=== PATIENT | male | born 1970 | race Caucasian/White ===

== ENCOUNTER 2018-07-20 19:35 | Inpatient (IN) | payer MEDICAID ==
[~2018-07-20] VITALS: Ht 182.9 cm; Wt 147.9 kg
[2018-07-20 19:40] VITALS: BP_SYST 166
[2018-07-20 20:34] LABS: BASOPHILS % (AUTO) 0.5 % (0.0-2.0); EOSINOPHILS # (AUTO) 0.1 K/uL (0.0-0.4); EOSINOPHILS % (AUTO) 2.4 % (0.0-4.0); HEMATOCRIT 43.4 % (36-54); HEMOGLOBIN 14.7 g/dL (14.0-18.0); LYMPHOCYTES # (AUTO) 1.5 K/uL (1.0-5.5); LYMPHOCYTES % (AUTO) 28.1 % (20.5-51.5); MEAN CORPUSCULAR HEMOGLOBIN 31 pg (27-31); MEAN CORPUSCULAR HGB CONC 34 % (32-36); MEAN CORPUSCULAR VOLUME 92 fL (79.0-98.0); MONOCYTES # (AUTO) 0.7 K/uL (0.0-1.0); MONOCYTES % (AUTO) 12.4 % (1.7-9.3); NEUTROPHILS # (AUTO) 3.2 K/uL (1.8-7.7); NEUTROPHILS % (AUTO) 56.6 % (40.0-70.0); PLATELET COUNT (AUTO) 144 K/uL (130-430); RED BLOOD CELL COUNT(AUTO) 4.74 MIL/uL (4.2-6.2); RED CELL DISTRIBUTION WIDTH 12.6 % (9.0-15.0); WHITE BLOOD COUNT (AUTO) 5.5 K/uL (4.8-10.8)
[2018-07-20 20:56] LABS: CALCIUM 9.3 mg/dL (8.4-11.0); CREATININE 1.23 mg/dL (0.55-1.30); POTASSIUM 4.7 mmol/L (3.5-5.1)
[2018-07-20] MEDS ORDERED: MORPHINE 4 MG/ML INJ. SYRINGE IVP ONE ×2 (21:00→22:45)
[2018-07-20] MEDS ORDERED: NS 500 ML IV ONE (21:00)
[2018-07-20] MEDS ORDERED: INSULIN REGULAR, HUMAN 10 UNITS/0.1 ML INJ IVP ONE (21:00)
[2018-07-20] MEDS ORDERED: ASPIRIN 325 MG TABLET (ECOTRIN) PO ONE (21:00)
[2018-07-20 21:01] LABS: ALBUMIN 3.3 g/dL (3.4-4.8); TOTAL BILIRUBIN 0.7 mg/dL (0.0-1.0)
[2018-07-20] MEDS ORDERED: NACL 0.9% 1,000 ML IV ONE (21:15)
[2018-07-20] MEDS ORDERED: ALBUTEROL SULFATE 0.083% 2.5 MG/3 ML VIAL.NEB INH ONE (21:30)
[2018-07-20] MEDS ORDERED: IOHEXOL 350 mgI/mL, 150 ML INFUS..BTL IV ONE (21:52)
[2018-07-20] MEDS ORDERED: PIPERACILLIN/TAZO 3.375 GM in NS 50 ML IV ONE (22:45)
[2018-07-20] MEDS ORDERED: VANCOMYCIN HCL 1,000 MG in NS 250 ML IV ONE (22:45)
[2018-07-20] MEDS ORDERED: VANCOMYCIN HCL 1000 MG/VIAL IV ONE (23:05)
[2018-07-20] MEDS ORDERED: PIPERACILLIN/TAZOBACTAM 3.375 GM/VIAL (ZOSYN) IV ONE (23:06)
[2018-07-20] MEDS ORDERED: ONDANSETRON HCL 4 MG/2 ML VIAL IVP PRN (23:15)
[2018-07-20 23:53] VITALS: BP_SYST 141
[2018-07-21] MEDS: INSULIN REGULAR, HUMAN 100 UNITS/ML, 10 ML VIAL (novoLIN R) SUBCUT PRN ×4 (06:11→22:05)
[2018-07-21 08:10] VITALS: BP_SYST 147
[2018-07-21] MEDS ORDERED: HYDROcodone/ACETAMIN 5-325 MG TAB (NORCO/ VICODIN) PO PRN (10:00)
[2018-07-21] MEDS ORDERED: FUROSEMIDE 40 MG TABLET PO ONE (10:15)
[2018-07-21] MEDS ORDERED: ATORVASTATIN 20 MG TABLET PO ONE (10:15)
[2018-07-21] MEDS ORDERED: CARVEDILOL 12.5 MG TABLET (COREG) PO ONE (10:15)
[2018-07-21] MEDS ORDERED: LISINOPRIL 20 MG TABLET PO ONE (10:15)
[2018-07-21 12:00] VITALS: BP_SYST 143
[2018-07-21 13:16] LABS: BARBITURATE, URINE NEGATIVE (NEG <=200); BENZODIAZEPINE, URINE NEGATIVE (NEG <=150); CANNABINOID, URINE NEGATIVE (NEG <=50); COCAINE, URINE NEGATIVE (NEG <=150); METHAMPHETAMINES SCREEN,URINE POSITIVE (NEG <=500); OPIATE, URINE POSITIVE (NEG <=100); PHENCYCLIDINE SCREEN,URINE NEGATIVE (NEG <=25); UR TRICYCLIC ANTIDEPRESSANTS NEGATIVE (NEG <=300); URINE AMPHETAMINE POSITIVE (NEG <=500); URINE METHADONE NEGATIVE (NEG <=200); URINE OXYCODONE SCREEN NEGATIVE (NEG <=100); URINE PROPOXYPHENE SCREEN NEGATIVE (NEG <=300)
[2018-07-21 15:01] VITALS: BP_SYST 96
[2018-07-21] MEDS: RIVAROXABAN 20 MG TABLET PO SCH (17:05)
[2018-07-21] MEDS: MORPHINE 2 MG/ML INJ. SYRINGE IVP PRN (19:07)
[2018-07-21 19:10] VITALS: BP_SYST 108
[2018-07-21 20:00] VITALS: BP_SYST 110
[2018-07-21] MEDS: CARVEDILOL 12.5 MG TABLET (COREG) PO SCH (20:50)
[2018-07-21] MEDS: FUROSEMIDE 40 MG TABLET PO SCH (20:50)
[2018-07-22 00:59] VITALS: BP_SYST 103
[2018-07-22] MEDS: INSULIN REGULAR, HUMAN 100 UNITS/ML, 10 ML VIAL (novoLIN R) SUBCUT PRN ×4 (06:30→20:14)
[2018-07-22 07:08] LABS: ALBUMIN 2.8 g/dL (3.4-4.8); CALCIUM 8.2 mg/dL (8.4-11.0); CREATININE 0.94 mg/dL (0.55-1.30); POTASSIUM 3.9 mmol/L (3.5-5.1); THYROID STIMULATING HORMONE 1.35 uIu/mL (0.34-4.82); TOTAL BILIRUBIN 0.7 mg/dL (0.0-1.0)
[2018-07-22 07:19] LABS: BASOPHILS % (AUTO) 0.7 % (0.0-2.0); EOSINOPHILS # (AUTO) 0.2 K/uL (0.0-0.4); HEMATOCRIT 39.1 % (36-54); HEMOGLOBIN 13.3 g/dL (14.0-18.0); LYMPHOCYTES # (AUTO) 1.7 K/uL (1.0-5.5); LYMPHOCYTES % (AUTO) 29.5 % (20.5-51.5); MEAN CORPUSCULAR HEMOGLOBIN 31 pg (27-31); MEAN CORPUSCULAR HGB CONC 34 % (32-36); MEAN CORPUSCULAR VOLUME 91 fL (79.0-98.0); MONOCYTES # (AUTO) 0.8 K/uL (0.0-1.0); MONOCYTES % (AUTO) 13.4 % (1.7-9.3); NEUTROPHILS % (AUTO) 52.4 % (40.0-70.0); PLATELET COUNT (AUTO) 122 K/uL (130-430); RED BLOOD CELL COUNT(AUTO) 4.29 MIL/uL (4.2-6.2); RED CELL DISTRIBUTION WIDTH 12.5 % (9.0-15.0); WHITE BLOOD COUNT (AUTO) 5.7 K/uL (4.8-10.8)
[2018-07-22 08:00] VITALS: BP_SYST 115
[2018-07-22] MEDS: ATORVASTATIN 20 MG TABLET PO SCH (09:19)
[2018-07-22] MEDS: FUROSEMIDE 40 MG TABLET PO SCH ×2 (09:20→20:11)
[2018-07-22] MEDS: ASPIRIN 81 MG TAB.CHEW PO SCH (09:20)
[2018-07-22] MEDS: CARVEDILOL 12.5 MG TABLET (COREG) PO SCH ×2 (09:21→21:49)
[2018-07-22] MEDS: LISINOPRIL 20 MG TABLET PO SCH (09:21)
[2018-07-22 12:00] VITALS: BP_SYST 117
[2018-07-22 16:55] VITALS: BP_SYST 106
[2018-07-22] MEDS: RIVAROXABAN 20 MG TABLET PO SCH (17:34)
[2018-07-22] MEDS: MORPHINE 2 MG/ML INJ. SYRINGE IVP PRN ×2 (19:46→23:38)
[2018-07-22 20:00] VITALS: BP_SYST 103
[2018-07-23] VITALS: BP_SYST 120
[2018-07-23] MEDS: MORPHINE 2 MG/ML INJ. SYRINGE IVP PRN ×2 (05:47→09:56)
[2018-07-23] MEDS: INSULIN REGULAR, HUMAN 100 UNITS/ML, 10 ML VIAL (novoLIN R) SUBCUT PRN ×2 (06:18→11:30)
[2018-07-23 08:02] VITALS: BP_SYST 129
[2018-07-23] MEDS: FUROSEMIDE 40 MG TABLET PO SCH (08:53)
[2018-07-23] MEDS: ASPIRIN 81 MG TAB.CHEW PO SCH (08:53)
[2018-07-23] MEDS: CARVEDILOL 12.5 MG TABLET (COREG) PO SCH (08:53)
[2018-07-23] MEDS: ATORVASTATIN 20 MG TABLET PO SCH (08:54)
[2018-07-23] MEDS: LISINOPRIL 20 MG TABLET PO SCH (08:54)
[2018-07-23 10:24] VITALS: BP_SYST 129
[2018-07-23 13:03] VITALS: BP_SYST 103
== END 2018-07-23 13:15 | disposition home or self-care (01) | DRG 194 ==
LOC: SED 19:35 → STU 23:11
PROVIDERS: ADMIT Internal Medicine Hospice and Palliative Medicine; ATTEND Internal Medicine Hospice and Palliative Medicine
DX: I11.0 Hypertensive heart disease with heart failure (principal); E11.622 Type 2 diabetes mellitus with other skin ulcer; E11.65 Type 2 diabetes mellitus with hyperglycemia; L03.115 Cellulitis of right lower limb; E66.01 Morbid (severe) obesity due to excess calories; I42.0 Dilated cardiomyopathy; I50.21 Acute systolic (congestive) heart failure; L97.919 Non-pressure chronic ulcer of unspecified part of right lower leg with unspecified severity; F10.10 Alcohol abuse, uncomplicated; F15.10 Other stimulant abuse, uncomplicated; F17.200 Nicotine dependence, unspecified, uncomplicated; I42.7 Cardiomyopathy due to drug and external agent; T43.625A Adverse effect of amphetamines, initial encounter; I83.009 Varicose veins of unspecified lower extremity with ulcer of unspecified site; I25.10 Atherosclerotic heart disease of native coronary artery without angina pectoris; Z66 Do not resuscitate; L03.116 Cellulitis of left lower limb; Y90.9 Presence of alcohol in blood, level not specified; Z95.810 Presence of automatic (implantable) cardiac defibrillator; Z91.14 Patient's other noncompliance with medication regimen; Z79.899 Other long term (current) drug therapy; Y92.89 Other specified places as the place of occurrence of the external cause; Z86.73 Personal history of transient ischemic attack (TIA), and cerebral infarction without residual deficits; Z79.4 Long term (current) use of insulin; Z86.711 Personal history of pulmonary embolism; Z68.41 Body mass index [BMI] 40.0-44.9, adult; Z86.718 Personal history of other venous thrombosis and embolism; Z71.51 Drug abuse counseling and surveillance of drug abuser
CPT/HCPCS: 36415; 71045; 71275; 80053; 80061; 80307; 82962; 83036; 83605; 83880; 84443-TC; 84484; 85025; 85379; 87040-TC; 93005; 93306; 94640; 96361; 96365; 96375; 96376; 99285; J1815; J2270; J2543; J3370; J7030; J7040; J7613; Q9967

== ENCOUNTER 2022-01-05 03:20 | Inpatient (IN) | payer MEDICAID ==
[~2022-01-05] VITALS: Ht 182.9 cm; Wt 127.0 kg
[2022-01-05 03:30] VITALS: BP_SYST 136
--- NOTE | 2022-01-05 03:35 | NUR ---
Placed in room 4 . Placed on teletypesetter monitor, blood pressure machine and pulse oximeter. To gown for exam. Side rails up. Report given to MARLINE JEFFERSON.
--- NOTE | 2022-01-05 03:45 | NUR ---
Note undone in EDM - 01/05/22 at 0419 by SDEDPR # 20 gauge angiocath placed to right ac. Use of asceptic technique. Opsite placed over site. Blood return noted. Blood for lab drawn from site. Flushed with 10 cc of normal saline. No evidence of infiltration noted. Patient tolerated well.
--- NOTE | 2022-01-05 03:45 | NUR ---
ER at bedside examining patient.
[2022-01-05] MEDS ORDERED: ASPIRIN 81 MG TAB.CHEW PO ONE ×2 (04:00→09:15)
--- NOTE | 2022-01-05 04:15 | NUR ---
ER at bedside examining patient.
--- NOTE | 2022-01-05 04:18 | NUR ---
# 20 gauge angiocath placed to Right AC. Use of asceptic technique. Opsite placed over site. Blood return noted. Blood for lab drawn from site. Flushed with 10 cc of normal saline. No evidence of infiltration noted. Patient tolerated well.
[2022-01-05 04:58] LABS: BASOPHILS # (AUTO) 0.1 K/uL (0.0-0.2); BASOPHILS % (AUTO) 0.8 % (0.0-2.0); EOSINOPHILS # (AUTO) 0.2 K/uL (0.0-0.4); EOSINOPHILS % (AUTO) 2.9 % (0.0-4.0); HEMATOCRIT 37.4 % (36-54); LYMPHOCYTES # (AUTO) 1.3 K/uL (1.0-5.5); LYMPHOCYTES % (AUTO) 19.6 % (20.5-51.5); MEAN CORPUSCULAR HEMOGLOBIN 26 pg (27-31); MEAN CORPUSCULAR HGB CONC 32 % (32-36); MEAN CORPUSCULAR VOLUME 82 fL (79.0-98.0); MONOCYTES # (AUTO) 0.8 K/uL (0.0-1.0); MONOCYTES % (AUTO) 11.9 % (1.7-9.3); NEUTROPHILS # (AUTO) 4.3 K/uL (1.8-7.7); NEUTROPHILS % (AUTO) 64.8 % (40.0-70.0); PLATELET COUNT (AUTO) 168 K/uL (130-430); RED BLOOD CELL COUNT(AUTO) 4.56 MIL/uL (4.2-6.2); RED CELL DISTRIBUTION WIDTH 17.2 % (9.0-15.0); WHITE BLOOD COUNT (AUTO) 6.6 K/uL (4.8-10.8)
[2022-01-05 05:08] LABS: CALCIUM 8.2 mg/dL (8.4-11.0); CREATININE 0.99 mg/dL (0.55-1.30)
--- NOTE | 2022-01-05 05:14 | NUR ---
Patient is admitted to the ER via ambulance. chief complaint is chest pain and leg pain. He is describing the pain as a "squishing of the heart". Patient has normal heart sounds and peripheral pulses are palpable. Patient has bilateral swelling and edema on both legs. Patient's legs are discolored and painful to walk on.
[2022-01-05 05:19] LABS: ALBUMIN 3.6 g/dL (3.4-4.8); PHOSPHORUS 3.7 mg/dL (2.7-4.5); TOTAL BILIRUBIN 0.7 mg/dL (0.0-1.0)
[2022-01-05] MEDS ORDERED: FUROSEMIDE 100 MG/10 ML VIAL IVP ONE (05:45)
--- NOTE | 2022-01-05 06:03 | NUR ---
Pt cannot remember his home medication.
--- NOTE | 2022-01-05 06:03 | NUR ---
Urine sent to the lab for UDS.
[2022-01-05] MEDS ORDERED: ONDANSETRON HCL 4 MG/2 ML VIAL IVP PRN (06:30)
[2022-01-05 07:06] LABS: BARBITURATE, URINE NEGATIVE (NEG <=200); BENZODIAZEPINE, URINE NEGATIVE (NEG <=150); CANNABINOID, URINE NEGATIVE (NEG <=50); COCAINE, URINE NEGATIVE (NEG <=150); METHAMPHETAMINES SCREEN,URINE NEGATIVE (NEG <=500); OPIATE, URINE NEGATIVE (NEG <=100); PHENCYCLIDINE SCREEN,URINE NEGATIVE (NEG <=25); UR TRICYCLIC ANTIDEPRESSANTS NEGATIVE (NEG <=300); URINE AMPHETAMINE NEGATIVE (NEG <=500); URINE METHADONE NEGATIVE (NEG <=200); URINE OXYCODONE SCREEN NEGATIVE (NEG <=100); URINE PROPOXYPHENE SCREEN NEGATIVE (NEG <=300)
--- NOTE | 2022-01-05 08:00 | NUR ---
Pt is in bed at lowest position. VSS. pt states he had chest pain when he first came and currently his chest pain he states it has improved from /10 to 5/10. Bilateral leg swelling noted. No sob and no n/v. Skin is intact. A&Ox4.
--- NOTE | 2022-01-05 08:58 | NUR ---
CONSULTATION PAGED/CALLED Reason for Consultation: [] chest pain Person Who was Notified: [] US DR DAVID PATEL ON EAST SIDE Consulting Physician: [] DR HERNANDEZ Hand Hide Stretcher Specialty: [] CARDIO Ordering Physician: [] DR LAWLER/PRESTON
[2022-01-05] MEDS ORDERED: D5W 1,000 ML IV PRN (09:00)
[2022-01-05] MEDS ORDERED: DEXTROSE 50% JECT 50 ML DISP.SYRIN IVP PRN (09:00)
[2022-01-05] MEDS ORDERED: GLUCOSE (DEXTROSE) ORAL GEL -Adults PO PRN (09:00)
--- NOTE | 2022-01-05 09:04 | NUR ---
Patient will be admitted to care of Michael JEFFERSON. Admitted to Tele unit. Will go to room 102A. Belongings list completed. Complete and up to date summary report printed. SBAR report to be given at bedside with opportunity for questions.
[2022-01-05] MEDS ORDERED: LISINOPRIL 10 MG TABLET (PRINIVIL) PO ONE (09:15)
[2022-01-05] MEDS ORDERED: ATORVASTATIN 20 MG TABLET PO ONE (09:15)
[2022-01-05 09:24] VITALS: BP_SYST 130
[2022-01-05] MEDS: INSULIN LISPRO SLIDING SCALE 100 UNITS/ML VIAL (humaLOG) SUBCUT PRN ×2 (12:41→17:56)
[2022-01-05] MEDS ORDERED: AMIO200T61 PO (12:48)
[2022-01-05] MEDS ORDERED: LIP40 PO (12:49)
[2022-01-05] MEDS ORDERED: IPRA4AER INH (12:50)
[2022-01-05] MEDS ORDERED: LEVE1000 PO (12:51)
[2022-01-05] MEDS ORDERED: METF-379 PO (12:52)
[2022-01-05] MEDS ORDERED: RIVA20TA PO (12:53)
[2022-01-05] MEDS ORDERED: METO25TA3 PO (12:53)
[2022-01-05] MEDS ORDERED: SPIR25TA PO (12:54)
[2022-01-05] MEDS ORDERED: SPIRIVA INH (12:55)
[2022-01-05] MEDS ORDERED: VALS80TA2 PO (12:59)
[2022-01-05] MEDS ORDERED: levETIRAcetam 500 MG TABLET PO ONE (13:15)
[2022-01-05 13:28] VITALS: BP_SYST 130
[2022-01-05] MEDS: IPRATROPIUM/ALBUTEROL SULFATE 3 ML AMPUL.NEB (DUONEB) INH SCH ×3 (14:13→23:00)
--- NOTE | 2022-01-05 16:40 | NUR ---
0915: PATIENT ADMITTED THRU ER. AWAKE, ALERT, ORIENTED X 4 TO NAME, PERSON, PLACE, AND TIME. RESPIRATION EVEN AND UNLABORED NO S/S OF ANY ACUTE DISTRESS NOTED. ABLE TO VERBALIZE NEEDS NO C/O ANY PAIN OR DISCOMFORT NOTED. ABDOMEN SOFT AND NON-DISTENDED, POSITIVE BOWEL SOUND X 4 NO N/V OR DIARRHEA NOTED. SKIN WARM AND DRY INTACT, BILATERAL LOWER EXTREMITIES DISCOLORATION AND 3+ EDEMA WITH PALPABLE PULSES BILATERALLY WILL CONTINUE TO MONITOR PATIENT.
--- NOTE | 2022-01-05 18:42 | NUR ---
Paged Dr. Bustamante s/w Ariela
[2022-01-05] MEDS ORDERED: NALOXONE HCL 0.4 MG/ML AMP (NARCAN) IVP PRN (18:45)
[2022-01-05] MEDS ORDERED: MORPHINE 2 MG/ML INJ. SYRINGE ONE (18:51)
--- NOTE | 2022-01-05 19:00 | NUR ---
1730: PATIENT DID C/O CHEST PAIN 7/10, EKG REPEATED PER PROTOCOL AND DR. HERNANDEZ WAS NOTIFIED, NO NEEDS FOR TROPONIN LEVEL TONIGHT TO BE DONE IN AM. 1900: NEW ORDER FOR PRN CHEST PAIN, MORPHINE 2 MG IV PUSH PRN FOR CHEST PAIN EFFECTIVE. PATIENT PAIN LEVEL NOW IS 2/10. WILL ENDORSED PATIENT TO PM SHIFT NURSE
[2022-01-05 20:00] VITALS: BP_SYST 108
[2022-01-05] MEDS ORDERED: LOSARTAN POTASSIUM 50 MG TABLET (COZAAR) PO SCH (21:00)
[2022-01-05] MEDS ORDERED: CARVEDILOL 3.125 MG TABLET (COREG) PO SCH (21:00)
[2022-01-05] MEDS ORDERED: VALSARTAN 80 MG TABLET (DIOVAN) PO SCH (21:00)
[2022-01-05] MEDS: SPIRONOLACTONE 25 MG TABLET (ALDACTONE) PO SCH (21:54)
[2022-01-05] MEDS: FUROSEMIDE 40 MG/4 ML VIAL IVP SCH (21:54)
[2022-01-05] MEDS: AMIODARONE HCL 200 MG TABLET PO SCH (21:54)
[2022-01-05] MEDS: RIVAROXABAN 10 MG TABLET PO SCH (21:55)
[2022-01-05] MEDS: levETIRAcetam 500 MG TABLET PO SCH (21:55)
[2022-01-05] MEDS: CARVEDILOL 3.125 MG TABLET (COREG) PO SCH (21:55)
[2022-01-05] MEDS: INSULIN GLARGINE 100 UNITS/ML 10 ML VIAL SUBCUT SCH (21:56)
[2022-01-06] VITALS: BP_SYST 106
[2022-01-06] MEDS: IPRATROPIUM/ALBUTEROL SULFATE 3 ML AMPUL.NEB (DUONEB) INH SCH ×5 (03:00→23:25)
[2022-01-06 04:00] VITALS: BP_SYST 110
[2022-01-06 07:53] LABS: INR 1.5 (0.80-1.20); PROTHROMBIN TIME 15.3 SECS (9.5-12.5)
--- NOTE | 2022-01-06 08:00 | NUR ---
AWAKE, ALERT, ORIENTED X 4 TO NAME, PERSON, PLACE, AND TIME. RESPIRATION EVEN AND UNLABORED NO S/S OF ANY ACUTE DISTRESS NOTED. ABLE TO VERBALIZE NEEDS NO C/O ANY PAIN OR DISCOMFORT @ THIS TIME. ABDOMEN SOFT AND NON-DISTENDED, POSITIVE BOWEL SOUND X 4 NO N/V OR DIARRHEA NOTED. SKIN WARM AND DRY, LOWER EXTREMITIES EDEMA WITH DISCOLORATION, PALPABLE PULSES. WILL CONTINUE TO MONITOR PATIENT
[2022-01-06 08:03] LABS: ALBUMIN 3.2 g/dL (3.4-4.8); CALCIUM 7.6 mg/dL (8.4-11.0); CREATININE 0.99 mg/dL (0.55-1.30); THYROID STIMULATING HORMONE 4.72 uIu/mL (0.36-3.74)
[2022-01-06] MEDS: FOLIC ACID 1 MG TABLET PO SCH (08:23)
[2022-01-06] MEDS: THIAMINE HCL 100 MG TABLET PO SCH (08:23)
[2022-01-06] MEDS: levETIRAcetam 500 MG TABLET PO SCH ×2 (08:23→20:56)
[2022-01-06] MEDS: ASPIRIN 81 MG TAB.CHEW PO SCH (08:23)
[2022-01-06] MEDS: ATORVASTATIN 20 MG TABLET PO SCH (08:24)
[2022-01-06] MEDS: AMIODARONE HCL 200 MG TABLET PO SCH ×2 (08:25→20:56)
--- NOTE | 2022-01-06 08:45 | NUR ---
BP 107/63, HR 80, NO C/O ANY LIGHTHEADEDNESS OR DIZZINESS NOTED. ALL DIURETIC AND B/P HELD, WILL CONTINUE TO MONITOR VS.
[2022-01-06] MEDS: CARVEDILOL 3.125 MG TABLET (COREG) PO SCH ×2 (09:00→20:56)
[2022-01-06] MEDS: FUROSEMIDE 40 MG/4 ML VIAL IVP SCH ×2 (09:00→20:55)
[2022-01-06] MEDS ORDERED: TIOTROPIUM BROMIDE 18 mcg/INHALATION (CAPSULE) INH SCH (09:00)
[2022-01-06] MEDS ORDERED: LISINOPRIL 10 MG TABLET (PRINIVIL) PO SCH (09:00)
[2022-01-06] MEDS ORDERED: ATORVASTATIN 20 MG TABLET PO SCH (09:00)
[2022-01-06] MEDS: SPIRONOLACTONE 25 MG TABLET (ALDACTONE) PO SCH ×2 (09:00→20:56)
[2022-01-06 09:37] LABS: BASOPHILS % (AUTO) 0.5 % (0.0-2.0); EOSINOPHILS # (AUTO) 0.1 K/uL (0.0-0.4); EOSINOPHILS % (AUTO) 1.7 % (0.0-4.0); HEMATOCRIT 36.4 % (36-54); HEMOGLOBIN 11.4 g/dL (14.0-18.0); LYMPHOCYTES # (AUTO) 1.5 K/uL (1.0-5.5); LYMPHOCYTES % (AUTO) 20.4 % (20.5-51.5); MEAN CORPUSCULAR HEMOGLOBIN 26 pg (27-31); MEAN CORPUSCULAR HGB CONC 31 % (32-36); MEAN CORPUSCULAR VOLUME 82 fL (79.0-98.0); NEUTROPHILS # (AUTO) 4.9 K/uL (1.8-7.7); NEUTROPHILS % (AUTO) 64.4 % (40.0-70.0); PLATELET COUNT (AUTO) 170 K/uL (130-430); RED BLOOD CELL COUNT(AUTO) 4.45 MIL/uL (4.2-6.2); RED CELL DISTRIBUTION WIDTH 17.6 % (9.0-15.0); WHITE BLOOD COUNT (AUTO) 7.6 K/uL (4.8-10.8)
[2022-01-06 11:26] VITALS: BP_SYST 109
[2022-01-06] MEDS: INSULIN LISPRO SLIDING SCALE 100 UNITS/ML VIAL (humaLOG) SUBCUT PRN ×2 (12:28→17:10)
[2022-01-06 15:44] VITALS: BP_SYST 116
--- NOTE | 2022-01-06 18:45 | NUR ---
VS MORE STABLE, AFEBRILE, NO C/O ANY PAIN OR DISCOMFORT NOTED. TOLERATED PO WELL WITH GOOD APPETITE, NO SHORTNESS OF BREATH NOTED. WILL ENDORSE PATIENT TO PM SHIFT NURSE.
[2022-01-06 20:00] VITALS: BP_SYST 105
[2022-01-06] MEDS: RIVAROXABAN 10 MG TABLET PO SCH (20:57)
[2022-01-06] MEDS: INSULIN GLARGINE 100 UNITS/ML 10 ML VIAL SUBCUT SCH (21:03)
[2022-01-07] VITALS: BP_SYST 102
[2022-01-07] MEDS: MORPHINE 2 MG/ML INJ. SYRINGE IVP PRN ×2 (00:08→08:31)
[2022-01-07] MEDS: IPRATROPIUM/ALBUTEROL SULFATE 3 ML AMPUL.NEB (DUONEB) INH SCH ×3 (03:00→11:22)
[2022-01-07 04:00] VITALS: BP_SYST 105
[2022-01-07 06:51] LABS: BASOPHILS % (AUTO) 0.6 % (0.0-2.0); EOSINOPHILS # (AUTO) 0.2 K/uL (0.0-0.4); EOSINOPHILS % (AUTO) 1.8 % (0.0-4.0); HEMATOCRIT 37.7 % (36-54); HEMOGLOBIN 11.9 g/dL (14.0-18.0); LYMPHOCYTES # (AUTO) 1.5 K/uL (1.0-5.5); LYMPHOCYTES % (AUTO) 18.1 % (20.5-51.5); MEAN CORPUSCULAR HEMOGLOBIN 26 pg (27-31); MEAN CORPUSCULAR HGB CONC 32 % (32-36); MEAN CORPUSCULAR VOLUME 82 fL (79.0-98.0); MONOCYTES # (AUTO) 0.9 K/uL (0.0-1.0); MONOCYTES % (AUTO) 10.9 % (1.7-9.3); NEUTROPHILS # (AUTO) 5.9 K/uL (1.8-7.7); NEUTROPHILS % (AUTO) 68.6 % (40.0-70.0); PLATELET COUNT (AUTO) 179 K/uL (130-430); RED BLOOD CELL COUNT(AUTO) 4.63 MIL/uL (4.2-6.2); RED CELL DISTRIBUTION WIDTH 17.7 % (9.0-15.0); WHITE BLOOD COUNT (AUTO) 8.6 K/uL (4.8-10.8)
[2022-01-07 07:20] LABS: CALCIUM 8.1 mg/dL (8.4-11.0); CREATININE 1.04 mg/dL (0.55-1.30); PHOSPHORUS 4.3 mg/dL (2.7-4.5); POTASSIUM 4.1 mmol/L (3.5-5.1)
--- NOTE | 2022-01-07 07:30 | NUR ---
Initial Note Patient asleep in bed, wakes to verbal stimuli. Alert and oriented x 4. Reports 7/10 chest pain. RT at bedside to give breathing treatment. Patient is not using oxygen at this time; saturating 98% on room air. Bilateral lower extremities with deep red-purple discoloration and pitting edema. Pedal pulses weak. No fever present. Call light and urinal in reach and bed in lowest position. Encouraged to call.
[2022-01-07] MEDS ORDERED: AMIO200T66 PO (08:28)
[2022-01-07] MEDS: FUROSEMIDE 40 MG/4 ML VIAL IVP SCH (08:32)
[2022-01-07] MEDS: AMIODARONE HCL 200 MG TABLET PO SCH (08:34)
[2022-01-07] MEDS: ASPIRIN 81 MG TAB.CHEW PO SCH (08:34)
[2022-01-07] MEDS: SPIRONOLACTONE 25 MG TABLET (ALDACTONE) PO SCH (08:35)
[2022-01-07] MEDS: ATORVASTATIN 20 MG TABLET PO SCH (08:36)
[2022-01-07] MEDS: FOLIC ACID 1 MG TABLET PO SCH (08:36)
[2022-01-07] MEDS: THIAMINE HCL 100 MG TABLET PO SCH (08:36)
[2022-01-07] MEDS ORDERED: THIA100T70 PO (08:37)
[2022-01-07] MEDS ORDERED: LEVE1000 PO (08:37)
[2022-01-07] MEDS ORDERED: CARV6.2554 PO (08:37)
[2022-01-07] MEDS ORDERED: SPIR25TA PO (08:37)
[2022-01-07] MEDS ORDERED: FOLI-43 PO (08:37)
[2022-01-07] MEDS ORDERED: RIVA20TA PO (08:37)
[2022-01-07] MEDS ORDERED: FURO-149 PO (08:37)
[2022-01-07] MEDS ORDERED: ALBMDI INH (08:37)
[2022-01-07] MEDS ORDERED: ASPI-1393 PO (08:37)
[2022-01-07] MEDS ORDERED: LISI10TA29 PO (08:37)
[2022-01-07] MEDS ORDERED: POTA-178 PO (08:37)
[2022-01-07] MEDS ORDERED: LIP40 PO (08:37)
[2022-01-07] MEDS ORDERED: INSU100V9 SQ (08:37)
[2022-01-07] MEDS: CARVEDILOL 3.125 MG TABLET (COREG) PO SCH (08:38)
[2022-01-07] MEDS: levETIRAcetam 500 MG TABLET PO SCH (08:43)
[2022-01-07 08:52] VITALS: BP_SYST 129
[2022-01-07] MEDS: INSULIN LISPRO SLIDING SCALE 100 UNITS/ML VIAL (humaLOG) SUBCUT PRN (11:15)
[2022-01-07 11:46] VITALS: BP_SYST 103
--- NOTE | 2022-01-07 13:10 | NUR ---
D/C Patient Patient given medication reconciliation form and D/C instructions. Exit Care provided. Patient verbalized understanding. MD discussed with patient the results and treatment provided. Ambulatory with assist for discharge to home; patient's mom to further assist. Patient in stable condition, ID band removed. IV catheter removed, intact and dressing applied, no active bleeding. Rx sent to preferred pharmacy. Patient educated on pain management. All belongings sent with patient.
--- NOTE | 2022-01-07 15:14 | NUR ---
Legal Editor MAXWELL Lai responded to social work referral. Patient's mother Indira Chappell requested to discuss some concerns prior to entering patients room. Patient's mother expressed concern related to patient's care, noncompliance with followup care and medication. She shared they currently reside in [facility]. According to patient's mother, he has been in several hospitals to treat previous strokes, open-heart surgery, and was placed on a psych hold at [place] prior to his current hospitalization. In an effort to assess for needs, MAXWELL Lai guided Indira through the hospital locations to obtain the location of his primary residence and his support [place]. Indira shares he was staying with a friend in the area, whom she shared having paid $30 to take care of him. Indira express frustration and stress related to "not taking care of himself", and requested resources for "convalescent home" or "senior care". MAXWELL Lai met with patient at bedside and completed introductions. 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 He shared he would be going back to [place] and he would not be around persons who use. Patient shared he would complete his followup care in [place] as well. MAXWELL Lai offered patient Substance Abuse and Mental Health Resources but the patient declined the packets.
--- NOTE | 2022-01-07 15:29 | NUR ---
Hoister MAXWELL Lai received a call from LI Liu stating patient and his mother were requesting additional support. MAXWELL Lai met with patient and his mother Indira at bedside. Patient's mother was again asking for support with in-home or supportive care for her son. MAXWELL Lai provided patient and mother with several resources, but informed them the resources would not be available in [place]. Patient shared he may be able to reside in [place], [place] with 2 friends. MAXWELL Lai provided him resources for [facility] and encouraged him to followup with applications for General Relief, In Home Supportive Services, [employer], and contact his Disability [employer] to inquire inot the support they may be able provide. MAXWELL also encouraged him to locate a primary care doctor to establish regular care. MAXWELL Lai also encouraged patient's mother to utilize mental health resources as she has expressed feeling stressed, and began to cry when discussing her concerns related to her son's health.
== END 2022-01-07 13:10 | disposition home or self-care (01) | DRG 194 ==
LOC: SED 03:20 → STU 06:29
PROVIDERS: ADMIT Student in an Organized Health Care Education/Training Program; ATTEND Student in an Organized Health Care Education/Training Program
DX: I11.0 Hypertensive heart disease with heart failure (principal); I42.0 Dilated cardiomyopathy; E87.1 Hypo-osmolality and hyponatremia; E87.8 Other disorders of electrolyte and fluid balance, not elsewhere classified; E11.65 Type 2 diabetes mellitus with hyperglycemia; E66.01 Morbid (severe) obesity due to excess calories; D64.9 Anemia, unspecified; E78.5 Hyperlipidemia, unspecified; J44.9 Chronic obstructive pulmonary disease, unspecified; I42.6 Alcoholic cardiomyopathy; F17.200 Nicotine dependence, unspecified, uncomplicated; Z20.822 Contact with and (suspected) exposure to COVID-19; F19.10 Other psychoactive substance abuse, uncomplicated; I50.23 Acute on chronic systolic (congestive) heart failure; F17.210 Nicotine dependence, cigarettes, uncomplicated; R07.9 Chest pain, unspecified; I42.7 Cardiomyopathy due to drug and external agent; I87.8 Other specified disorders of veins; Z91.14 Patient's other noncompliance with medication regimen; Z95.810 Presence of automatic (implantable) cardiac defibrillator; Z68.38 Body mass index [BMI] 38.0-38.9, adult; Z79.899 Other long term (current) drug therapy; Z86.73 Personal history of transient ischemic attack (TIA), and cerebral infarction without residual deficits; Z86.718 Personal history of other venous thrombosis and embolism; Z86.711 Personal history of pulmonary embolism; Z83.3 Family history of diabetes mellitus; Z71.6 Tobacco abuse counseling; Z71.51 Drug abuse counseling and surveillance of drug abuser; Z79.01 Long term (current) use of anticoagulants
CPT/HCPCS: 36415; 71045; 80048; 80053; 80307; 82962; 83735; 83880; 84100; 84443; 84484; 85025; 85610-TC; 87081; 93005; 93306; 94640; 94760; 96374; 99285; G0378; J1815; J1940; J2270

== ENCOUNTER 2023-07-20 12:08 | Observation (INO) | payer MEDICAID, OTHER ==
[~2023-07-20] VITALS: Ht 185.4 cm; Wt 132.7 kg
[~2023-07-20 12:08] MED LIST: ALBMDI INH; AMIO200T66 PO; ASPI-1393 PO; CARV6.2554 PO; FOLI-43 PO; FURO-149 PO; INSU100V9 SQ; IPRA4AER INH; LEVE1000 PO; LIP40 PO; LISI10TA29 PO; METF-379 PO; METO25TA3 PO; NITSL SL; POTA-178 PO; RIVA20TA PO; SPIR25TA PO; SPIRIVA INH; THIA100T70 PO; VALS80TA2 PO
[2023-07-20 12:18] VITALS: BP_SYST 118; PULSE 97; RESP 22; TEMP 98; O2SAT 95
[2023-07-20 12:51] LABS: BASOPHILS % (AUTO) 0.3 % (0.0-2.0); EOSINOPHILS # (AUTO) 0.2 K/uL (0.0-0.4); HEMATOCRIT 43.9 % (36-54); HEMOGLOBIN 14.4 g/dL (14.0-18.0); LYMPHOCYTES # (AUTO) 2.2 K/uL (1.0-5.5); LYMPHOCYTES % (AUTO) 21.8 % (20.5-51.5); MEAN CORPUSCULAR HEMOGLOBIN 28 pg (27-31); MEAN CORPUSCULAR HGB CONC 33 % (32-36); MEAN CORPUSCULAR VOLUME 87 fL (79.0-98.0); MONOCYTES # (AUTO) 0.8 K/uL (0.0-1.0); MONOCYTES % (AUTO) 8.1 % (1.7-9.3); NEUTROPHILS % (AUTO) 67.8 % (40.0-70.0); PLATELET COUNT (AUTO) 176 K/uL (130-430); RED BLOOD CELL COUNT(AUTO) 5.06 MIL/uL (4.2-6.2); RED CELL DISTRIBUTION WIDTH 13.9 % (9.0-15.0); WHITE BLOOD COUNT (AUTO) 10.2 K/uL (4.8-10.8)
[2023-07-20 12:55] LABS: ANION GAP 13 (5-15); CARBON DIOXIDE 26 mmol/L (23-29); CHLORIDE 98 mmol/L (98-107); CREATININE 1.24 mg/dL (0.55-1.30); GFR AFRICAN AMERICAN 79 mL/min (>90); GLUCOSE 237 mg/dL (74-106); POTASSIUM 3.9 mmol/L (3.5-5.1); SODIUM SERUM 137 mmol/L (136-145); UREA NITROGEN, BLOOD 19 mg/dL (8-21)
[2023-07-20 12:57] LABS: PROTHROMBIN TIME 10.4 SECS (9.5-12.5)
[2023-07-20] MEDS ORDERED: ASPIRIN 325 MG TABLET PO ONE (13:00)
[2023-07-20] MEDS ORDERED: NITROGLYCERIN 0.4 MG TAB.SUBL SL ONE (13:00)
[2023-07-20] MEDS ORDERED: MORPHINE 4 MG INJ. 4 MG/ML VIAL IVP ONE (13:00)
[2023-07-20 13:01] LABS: ALANINE AMINOTRANSFERASE 15 U/L (12-78); ALBUMIN 3.8 g/dL (3.4-4.8); ASPARTATE AMINOTRANSFERASE 11 U/L (10-37); CREATINE KINASE, TOTAL 51 U/L (39-308); LIPASE 76 U/L (73-393); PHOSPHORUS 3.7 mg/dL (2.7-4.5); TOTAL BILIRUBIN 1.1 mg/dL (0.0-1.0); TOTAL PROTEIN, SERUM 7.7 g/dL (6.4-8.3)
[2023-07-20 13:08] LABS: GFR NON AFRICAN-AMERICAN 65 mL/min (>90)
[2023-07-20 14:26] LABS: BILIRUBIN,URINE NEGATIVE (NEGATIVE); BLOOD, URINE NEGATIVE (NEGATIVE); CLARITY/URINE Clear (CLEAR); COLOR,URINE YELLOW (YELLOW); GLUCOSE,URINE 2+ (NEGATIVE); KETONES,URINE NEGATIVE (NEGATIVE); NITRITE, URINE NEGATIVE (NEGATIVE); PH,URINE 5.5 (5.0-8.0); PROTEIN URINE NEGATIVE (NEGATIVE); UROBILINOGEN,URINE 0.2 (0.2-1.0)
[2023-07-20 14:27] LABS: LEUKOCYTE ESTERASE ,URINE NEGATIVE (NEGATIVE)
[2023-07-20] MEDS ORDERED: iohexoL 350 mgI/mL, 100 ML INFUS..BTL IV ONE (14:38)
[2023-07-20 16:50] VITALS: PULSE 68; RESP 16; TEMP 97
[2023-07-20] MEDS ORDERED: ESCI10TA PO (17:29)
[2023-07-20] MEDS ORDERED: BUSP10TA3 PO (17:29)
[2023-07-20] MEDS ORDERED: LIP40 PO (17:29)
[2023-07-20] MEDS ORDERED: SPIR25TA6 PO (17:29)
[2023-07-20] MEDS ORDERED: FURO-149 PO (17:29)
[2023-07-20] MEDS ORDERED: LISI10TA29 PO (17:29)
[2023-07-20] MEDS ORDERED: EMPA10TA PO (17:29)
[2023-07-20] MEDS ORDERED: INSU100V9 SQ (17:29)
[2023-07-20] MEDS ORDERED: METF-379 PO (17:29)
[2023-07-20] MEDS ORDERED: CARV3.1246 PO (17:29)
[2023-07-20] MEDS ORDERED: LEVE500T9 PO (17:29)
[2023-07-20] MEDS ORDERED: APIX5TAB4 PO (17:29)
[2023-07-20] MEDS ORDERED: metFORMIN HCL 500 MG TABLET PO SCH (18:00)
[2023-07-20] MEDS ORDERED: INSULIN REGULAR, HUMAN 100 UNITS/ML, 3 ML VIAL (humuLIN R) SUBCUT PRN (18:00)
[2023-07-20] MEDS ORDERED: NALOXONE HCL 0.4 MG/ML AMP (NARCAN) IVP PRN (18:15)
[2023-07-20] MEDS ORDERED: ACETAMINOPHEN 500 MG TABLET PO PRN (18:15)
[2023-07-20 18:26] VITALS: O2SAT 97
[2023-07-20] MEDS ORDERED: MORPHINE 2 MG/ML INJ. SYRINGE ONE (18:58)
[2023-07-20 21:40] VITALS: BP_SYST 114; PULSE 68; RESP 18; TEMP 98.2; O2SAT 100
[2023-07-20] MEDS: APIXABAN 2.5 MG TABLET PO SCH (22:03)
[2023-07-20] MEDS: levETIRAcetam 500 MG TABLET PO SCH (22:04)
[2023-07-20] MEDS: CARVEDILOL 3.125 MG TABLET (COREG) PO SCH (22:04)
[2023-07-20] MEDS: busPIRone HCL 5 MG TABLET PO SCH (22:04)
[2023-07-21 00:45] VITALS: BP_SYST 113; PULSE 70; RESP 18; TEMP 97.7; O2SAT 97
[2023-07-21 08:00] VITALS: BP_SYST 112; PULSE 70; RESP 18; TEMP 97.3; O2SAT 98
[2023-07-21] MEDS ORDERED: metFORMIN HCL 500 MG TABLET PO SCH (08:00)
[2023-07-21] MEDS: levETIRAcetam 500 MG TABLET PO SCH (08:32)
[2023-07-21] MEDS: CARVEDILOL 3.125 MG TABLET (COREG) PO SCH (08:34)
[2023-07-21] MEDS: busPIRone HCL 5 MG TABLET PO SCH (08:35)
[2023-07-21] MEDS: APIXABAN 2.5 MG TABLET PO SCH (08:36)
[2023-07-21 08:39] LABS: BARBITURATE, URINE NEGATIVE (NEG <=200); BENZODIAZEPINE, URINE NEGATIVE (NEG <=150); CANNABINOID, URINE NEGATIVE (NEG <=50); COCAINE, URINE NEGATIVE (NEG <=150); METHAMPHETAMINES SCREEN,URINE NEGATIVE (NEG <=500); OPIATE, URINE POSITIVE (NEG <=100); PHENCYCLIDINE SCREEN,URINE NEGATIVE (NEG <=25); URINE AMPHETAMINE NEGATIVE (NEG <=500); URINE METHADONE NEGATIVE (NEG <=200); URINE OXYCODONE SCREEN NEGATIVE (NEG <=100); URINE PROPOXYPHENE SCREEN NEGATIVE (NEG <=300)
[2023-07-21 08:40] LABS: UR TRICYCLIC ANTIDEPRESSANTS NEGATIVE (NEG <=300)
[2023-07-21] MEDS: MORPHINE 2 MG/ML INJ. SYRINGE IVP PRN ×2 (08:52→13:21)
[2023-07-21] MEDS ORDERED: ESCITALOPRAM OXALATE 10 MG TABLET PO SCH ×2 (09:00)
[2023-07-21] MEDS ORDERED: levETIRAcetam 500 MG TABLET PO SCH (09:00)
[2023-07-21] MEDS ORDERED: CITALOPRAM HYDROBROMIDE 20 MG TABLET PO SCH ×2 (09:00)
[2023-07-21] MEDS ORDERED: INSULIN GLARGINE 100 UNITS/ML, 10 ML VIAL SUBCUT SCH (09:00)
[2023-07-21] MEDS ORDERED: INSULIN GLARGINE 100 UNITS/ML, 10 ML VIAL SQ SCH (09:00)
[2023-07-21] MEDS ORDERED: LISINOPRIL 10 MG TABLET (PRINIVIL) PO SCH ×2 (09:00)
[2023-07-21] MEDS ORDERED: CARVEDILOL 3.125 MG TABLET (COREG) PO SCH (09:00)
[2023-07-21] MEDS ORDERED: ATORVASTATIN 20 MG TABLET PO SCH ×2 (09:00)
[2023-07-21] MEDS ORDERED: EMPAGLIFLOZIN 10 MG TABLET PO SCH ×2 (09:00)
[2023-07-21] MEDS ORDERED: SPIRONOLACTONE 25 MG TABLET (ALDACTONE) PO SCH ×2 (09:00)
[2023-07-21] MEDS ORDERED: busPIRone HCL 5 MG TABLET PO SCH (09:00)
[2023-07-21] MEDS ORDERED: FUROSEMIDE 40 MG TABLET PO SCH ×2 (09:00)
[2023-07-21 11:39] VITALS: BP_SYST 133; PULSE 64; RESP 20; TEMP 97.9; O2SAT 100
[2023-07-21] MEDS ORDERED: TRAM50TA2 PO (13:40)
[2023-07-21 15:15] VITALS: BP_SYST 133; PULSE 64; RESP 18; TEMP 97.9; O2SAT 100
[2023-07-21 17:30] VITALS: BP_SYST 99; PULSE 65; RESP 16; TEMP 98.5; O2SAT 96
== END 2023-07-21 22:13 | disposition home or self-care (01) ==
LOC: SED 12:08 → STU 14:16
PROVIDERS: ADMIT Specialist; ATTEND Specialist
DX: M94.0 Chondrocostal junction syndrome [Tietze] (principal); I25.119 Atherosclerotic heart disease of native coronary artery with unspecified angina pectoris; J44.9 Chronic obstructive pulmonary disease, unspecified; E11.65 Type 2 diabetes mellitus with hyperglycemia; E66.01 Morbid (severe) obesity due to excess calories; I11.0 Hypertensive heart disease with heart failure; I50.9 Heart failure, unspecified; E78.5 Hyperlipidemia, unspecified; I48.91 Unspecified atrial fibrillation; I42.0 Dilated cardiomyopathy; I87.8 Other specified disorders of veins; F15.11 Other stimulant abuse, in remission; F17.200 Nicotine dependence, unspecified, uncomplicated; Z86.73 Personal history of transient ischemic attack (TIA), and cerebral infarction without residual deficits; Z86.718 Personal history of other venous thrombosis and embolism; Z86.711 Personal history of pulmonary embolism; Z95.810 Presence of automatic (implantable) cardiac defibrillator; Z79.899 Other long term (current) drug therapy
CPT/HCPCS: 96374; 80307; 80053; 82550; 82962 ×2; 83880; 83690; 83735; 84100; 85025; 85610; 85730; 84484 ×2; 36415 ×2; 71045; 71275; 76376; 99285; 81003; 96372; 96376; Q9967; J2270 ×3; G0378 ×2; J1815

== ENCOUNTER 2023-07-25 12:11 | Emergency (ER) | payer OTHER ==
[~2023-07-25] VITALS: Ht 188 cm; Wt 134.7 kg
[~2023-07-25 12:11] MED LIST changes: -ALBMDI INH; -AMIO200T66 PO; +APIX5TAB4 PO; -ASPI-1393 PO; +BUSP10TA3 PO; +CARV3.1246 PO; -CARV6.2554 PO; +EMPA10TA PO; +ESCI10TA PO; -FOLI-43 PO; -IPRA4AER INH; -LEVE1000 PO; +LEVE500T9 PO; -METO25TA3 PO; -NITSL SL; -POTA-178 PO; -RIVA20TA PO; -SPIR25TA PO; +SPIR25TA6 PO; -SPIRIVA INH; -THIA100T70 PO; +TRAM50TA2 PO; -VALS80TA2 PO
[2023-07-25 12:22] VITALS: BP_SYST 90; PULSE 70; RESP 14; TEMP 98.1; O2SAT 97
[2023-07-25] MEDS ORDERED: MORPHINE 4 MG INJ. 4 MG/ML VIAL IM ONE (12:45)
[2023-07-25] MEDS ORDERED: ONDANSETRON HCL 4 MG/2 ML VIAL IVP ONE (13:00)
[2023-07-25] MEDS ORDERED: MORPHINE 4 MG INJ. 4 MG/ML VIAL IVP ONE ×2 (13:00→14:45)
[2023-07-25 13:02] LABS: PROTHROMBIN TIME 10.4 SECS (9.5-12.5)
[2023-07-25 13:20] LABS: ANION GAP 8 (5-15); CALCIUM 8.5 mg/dL (8.4-11.0); CARBON DIOXIDE 28 mmol/L (23-29); CHLORIDE 99 mmol/L (98-107); CREATININE 1.12 mg/dL (0.55-1.30); GFR AFRICAN AMERICAN 89 mL/min (>90); GLUCOSE 234 mg/dL (74-106); POTASSIUM 4.5 mmol/L (3.5-5.1); SODIUM SERUM 135 mmol/L (136-145); UREA NITROGEN, BLOOD 16 mg/dL (8-21)
[2023-07-25 13:23] LABS: BASOPHILS # (AUTO) 0.1 K/uL (0.0-0.2); BASOPHILS % (AUTO) 0.7 % (0.0-2.0); EOSINOPHILS # (AUTO) 0.6 K/uL (0.0-0.4); EOSINOPHILS % (AUTO) 7.2 % (0.0-4.0); HEMATOCRIT 43.4 % (36-54); HEMOGLOBIN 14.1 g/dL (14.0-18.0); LYMPHOCYTES # (AUTO) 1.7 K/uL (1.0-5.5); LYMPHOCYTES % (AUTO) 20.7 % (20.5-51.5); MEAN CORPUSCULAR HEMOGLOBIN 28 pg (27-31); MEAN CORPUSCULAR HGB CONC 33 % (32-36); MEAN CORPUSCULAR VOLUME 87 fL (79.0-98.0); MONOCYTES # (AUTO) 0.7 K/uL (0.0-1.0); MONOCYTES % (AUTO) 8.3 % (1.7-9.3); NEUTROPHILS # (AUTO) 5.3 K/uL (1.8-7.7); NEUTROPHILS % (AUTO) 63.1 % (40.0-70.0); PLATELET COUNT (AUTO) 169 K/uL (130-430); RED BLOOD CELL COUNT(AUTO) 5.02 MIL/uL (4.2-6.2); WHITE BLOOD COUNT (AUTO) 8.4 K/uL (4.8-10.8)
[2023-07-25 13:26] LABS: ALANINE AMINOTRANSFERASE 14 U/L (12-78); ALBUMIN 3.5 g/dL (3.4-4.8); ASPARTATE AMINOTRANSFERASE 9 U/L (10-37); CREATINE KINASE, TOTAL 23 U/L (39-308); LIPASE 101 U/L (73-393); TOTAL PROTEIN, SERUM 7.1 g/dL (6.4-8.3)
[2023-07-25 13:29] LABS: GFR NON AFRICAN-AMERICAN 73 mL/min (>90)
[2023-07-25] MEDS ORDERED: ACET-2634 PO (14:22)
[2023-07-25] MEDS ORDERED: LEVE500T9 PO (14:47)
[2023-07-25 15:17] VITALS: BP_SYST 112; PULSE 70; RESP 19; TEMP 98; O2SAT 94
== END 2023-07-25 15:15 | disposition home or self-care (01) ==
LOC: SED 12:11
DX: M94.0 Chondrocostal junction syndrome [Tietze] (principal); R07.9 Chest pain, unspecified; J44.9 Chronic obstructive pulmonary disease, unspecified; I11.0 Hypertensive heart disease with heart failure; I50.9 Heart failure, unspecified; E11.9 Type 2 diabetes mellitus without complications; F17.200 Nicotine dependence, unspecified, uncomplicated; F10.21 Alcohol dependence, in remission; Z79.4 Long term (current) use of insulin; Z79.899 Other long term (current) drug therapy; Y90.6 Blood alcohol level of 120-199 mg/100 ml
CPT/HCPCS: 99285; 96374; 71045; 96375; 80053; 82550; 83880; 83690; 85025; 85610; 85730; 84484; 36415; 93005; 96376; J2405; J2270